=== PATIENT | female | born 1940 | race Caucasian/White ===

== ENCOUNTER 2018-02-25 12:34 | Emergency (ER) | payer MEDICARE, OTHER ==
[~2018-02-25] VITALS: Ht 165.1 cm; Wt 102.1 kg
[2018-02-25 12:51] VITALS: BP 137/96
[2018-02-25] MEDS ORDERED: KETOROLAC TROMETH 60MG/2ML VIAL IM ONE (15:15)
== END 2018-02-25 15:12 | disposition home or self-care (01) ==
LOC: ER 12:37
DX: S56.116A Strain of flexor muscle, fascia and tendon of left ring finger at forearm level, initial encounter (principal); S20.212A Contusion of left front wall of thorax, initial encounter; I10 Essential (primary) hypertension; E78.5 Hyperlipidemia, unspecified; Z87.891 Personal history of nicotine dependence; Z91.81 History of falling; Z88.6 Allergy status to analgesic agent; Z88.8 Allergy status to other drugs, medicaments and biological substances; W01.0XXA Fall on same level from slipping, tripping and stumbling without subsequent striking against object, initial encounter; Y93.89 Activity, other specified; Y92.89 Other specified places as the place of occurrence of the external cause; Y99.8 Other external cause status
CPT/HCPCS: 29130; 71045; 73130; 93005

== ENCOUNTER 2019-07-25 15:48 | Emergency (ER) | payer MEDICARE, OTHER ==
[~2019-07-25] VITALS: Ht 162.6 cm; Wt 93.4 kg
[2019-07-25 17:09] VITALS: BP 139/91
[2019-07-25] MEDS ORDERED: ACETAMINOPHEN 325 MG TAB PO ONE (17:15)
== END 2019-07-25 17:29 | disposition home or self-care (01) ==
LOC: ER 15:53
DX: S83.91XA Sprain of unspecified site of right knee, initial encounter (principal); I10 Essential (primary) hypertension; E78.5 Hyperlipidemia, unspecified; Z88.5 Allergy status to narcotic agent; Z88.8 Allergy status to other drugs, medicaments and biological substances; X58.XXXA Exposure to other specified factors, initial encounter; Y93.89 Activity, other specified; Y92.89 Other specified places as the place of occurrence of the external cause; Y99.8 Other external cause status
CPT/HCPCS: 73562

== ENCOUNTER 2021-04-09 19:38 | Emergency (ER) | payer MEDICARE, OTHER ==
[~2021-04-09] VITALS: Ht 167.6 cm; Wt 99.8 kg
[2021-04-09] MEDS ORDERED: SODIUM CHLORIDE 0.9% 1,000 ML IV ONE (20:45)
[2021-04-09] MEDS ORDERED: PIPERACILLIN-TAZO 4.5GM 100 ML IV ONE (20:45)
[2021-04-09] MEDS ORDERED: VANCOMYCIN 1GM/250ML 250 ML IV ONE (20:45)
[2021-04-09 21:24] LABS: Hematocrit 29.9 % (36.0-46.0); Mean Corpuscular Volume 95.5 fL (80.0-100.0)
[2021-04-09 21:27] LABS: Hemoglobin 9.9 g/dL (12.2-16.2); Mean Corpuscular Hemoglobin 31.7 pg (28.0-32.0); Mean Corpuscular Hgb Conc. 33.2 g/dL (32.0-36.0); Red Blood Cells 3.13 10^6/uL (4.0-5.20); Red Cell Distribution Width 13.8 % (11.8-14.3)
[2021-04-09 21:43] LABS: Albumin 2.9 g/dL (3.4-5.0); Calcium 8.8 mg/dL (8.5-10.1); Potassium 3.6 mmol/L (3.5-5.1)
[2021-04-09 21:44] LABS: White Blood Cell 31.4 10^3/uL (4.4-10.8)
[2021-04-09 21:46] LABS: Basophils % (manual) 0 (0.0-2.0); Blast Cells 0; Eosinophils % (manual) 0 (0-7); Metamyelocytes % 0; Myelocytes % 0; Promyelocytes % 0; Reactive Lymphocytes 0
[2021-04-09 21:50] LABS: BUN/Creatinine Ratio 9.4; Bilirubin, Total 0.3 mg/dL (0.2-1.0); Total Protein 6.2 g/dL (6.4-8.2)
[2021-04-09] MEDS ORDERED: ONDANSETRON HCL 4 MG/2 ML VIAL IV ONE (22:00)
[2021-04-09] MEDS ORDERED: MORPHINE SULFATE 4 MG/ML SYR/VIAL IV ONE (22:00)
[2021-04-09] MEDS ORDERED: SODIUM CHLORIDE 0.9% 3,000 ML IV ONE (22:15)
[2021-04-09 22:37] LABS: Lactic Acid w/Reflex 9.3 mmol/L (0.4-2.0)
[2021-04-09] MEDS ORDERED: fentaNYL CITRATE 100 MCG/2 ML VL ONE (22:48)
[2021-04-09 22:59] LABS: Band Neutrophils % (manual) 10; Lymphocytes % (manual) 8 (10.0-50.0); Monocytes % (manual) 5 (0-12)
[2021-04-09] MEDS ORDERED: fentaNYL CITRATE 100 MCG/2 ML VL IV ONE (23:00)
[2021-04-09 23:01] LABS: Hematocrit 27.3 % (36.0-46.0)
[2021-04-10 00:13] LABS: INR 1.19 (0.9-1.15); Partial Thromboplastin Time 23.9 sec (23.6-33.0)
[2021-04-10] MEDS ORDERED: ONDANSETRON HCL 4 MG/2 ML VIAL ONE (01:16)
[2021-04-10 01:29] VITALS: BP 93/42
[2021-04-10] MEDS ORDERED: fentaNYL CITRATE 100 MCG/2 ML VL IV ONE (01:30)
[2021-04-10] MEDS ORDERED: ONDANSETRON HCL 4 MG/2 ML VIAL IV ONE (01:30)
== END 2021-04-10 02:11 | disposition short-term general hospital (02) ==
LOC: EDBD 19:38 → ER 19:44
DX: I72.9 Aneurysm of unspecified site (principal); R10.32 Left lower quadrant pain; Z90.49 Acquired absence of other specified parts of digestive tract; Z20.822 Contact with and (suspected) exposure to COVID-19
CPT/HCPCS: 36415; 36430; 71045; 74176; 80053; 83605; 83690; 84484; 85007; 85014; 85018; 85027; 85610; 85730; 86850; 86900; 86901; 86920; 87040; 87426; 93005; 96365; 96366; 96367; 96375; 96376; 99285; J2270; J2405; J2543; J3010; J3370; J7030; J7040; P9016

== ENCOUNTER 2022-09-18 14:38 | Emergency (ER) | payer MEDICARE, OTHER ==
[~2022-09-18] VITALS: Ht 165.1 cm; Wt 88.4 kg
[2022-09-18 19:35] VITALS: BP 202/124
== END 2022-09-18 19:31 | disposition home or self-care (01) ==
LOC: ER 14:38
DX: M13.811 Other specified arthritis, right shoulder (principal); R07.89 Other chest pain; E78.5 Hyperlipidemia, unspecified; I10 Essential (primary) hypertension; Z87.891 Personal history of nicotine dependence; Z88.6 Allergy status to analgesic agent
CPT/HCPCS: 71046; 72040; 73030

== ENCOUNTER 2024-01-15 18:04 | Inpatient (IN) | payer MEDICARE, OTHER ==
[~2024-01-15] VITALS: Ht 170.2 cm; Wt 91.1 kg
[2024-01-15 19:19] LABS: Basophils # (auto) 0.1 10 ^3/uL (0-0.2); Basophils % (auto) 1.3 % (0.0-2.0); Eosinophils # (auto) 0.5 10 ^3/uL (0-0.8); Hemoglobin 11.6 g/dL (12.2-16.2); Lymphocytes # (auto) 2.6 10 ^3/uL (0.4-5.4); Lymphocytes % (auto) 35.2 % (10.0-50.0); Mean Corpuscular Hemoglobin 31.5 pg (28.0-32.0); Mean Corpuscular Hgb Conc. 32.3 g/dL (32.0-36.0); Mean Corpuscular Volume 97.4 fL (80.0-100.0); Monocytes % (auto) 13.3 % (0.0-12.0); Neutrophils # (auto) 3.2 10 ^3/uL (1.6-8.6); Neutrophils % (auto) 43.2 % (37.0-80.0); Nucleated Red Blood Cells % 0.1 %; Red Blood Cells 3.69 10^6/uL (4.0-5.20); White Blood Cell 7.3 10^3/uL (4.4-10.8)
[2024-01-15 19:34] LABS: Alanine Aminotransferase 12 U/L (7-40); Albumin 3.9 g/dL (3.2-4.8); Alkaline Phosphatase 62 U/L (46-116); Anion Gap 6 (5-15); Aspartate Aminotransferase 14 U/L (13-40); BUN/Creatinine Ratio 11.6 (10.0-20.0); Bilirubin, Total 0.2 mg/dL (0.2-1.0); Blood Urea Nitrogen 13 mg/dL (9-23); Calcium 8.8 mg/dL (8.7-10.4); Carbon Dioxide 24 mmol/L (20-30); Chloride 111 mmol/L (98-107); Glucose 104 mg/dL (74-106); Potassium 4.4 mmol/L (3.5-5.1); Sodium 141 mmol/L (136-145); Total Protein 6.5 g/dL (5.7-8.2)
[2024-01-15 19:38] LABS: INR 1.03 (0.9-1.15); Partial Thromboplastin Time 26.5 SEC (24.5-34.5); Prothrombin Time 10.9 sec (9.3-11.8)
[2024-01-15] MEDS ORDERED: LOSA-534 PO (23:24)
[2024-01-15] MEDS ORDERED: AMLO1TAB21 PO (23:24)
[2024-01-15] MEDS ORDERED: CHOL4POW33 PO (23:24)
[2024-01-15] MEDS ORDERED: MET25T PO (23:24)
[2024-01-15] MEDS ORDERED: CITA-77 PO (23:24)
[2024-01-15] MEDS ORDERED: DOCUSATE SOD 100 MG CAP PO PRN (23:30)
[2024-01-15] MEDS ORDERED: ONDANSETRON HCL 4 MG/2 ML VIAL IV PRN (23:30)
[2024-01-15] MEDS ORDERED: MORPHINE SULFATE INJ 2 MG/ml SYRG IV PRN ×2 (23:30)
[2024-01-15] MEDS ORDERED: ACETAMINOPHEN 325 MG TAB PO PRN (23:30)
[2024-01-15] MEDS ORDERED: NITROGLYCERIN 0.4 MG SL TAB SL PRN (23:30)
[2024-01-16] VITALS (8 sets, daily range): BP systolic 132–181; BP diastolic 65–91; PULSE 61–98; RESP 14–20; TEMP 97.7–97.9; O2SAT 95–96
[2024-01-16] MEDS: ASPirin-EC 325mg tab PO ONE (00:38)
[2024-01-16] MEDS: PANTOPRAZOLE 40 MG/10 ML VIAL INJ IV ONE (01:51)
[2024-01-16] MEDS: FUROSEMIDE 40 MG/4 ML VIAL IV ONE (01:52)
[2024-01-16] MEDS: hydrALAZINE HCL 20 MG/ML VL IV PRN (02:03)
[2024-01-16 03:34] LABS: Urine Bacteria None Seen /hpf (None Seen); Urine WBC None Seen /hpf (0 - 5)
[2024-01-16 04:08] LABS: Urine Blood Negative /uL (Negative); Urine Clarity Clear (Clear); Urine Color Colorless (Yellow); Urine Protein, UAD Negative (Negative); Urine Specific Gravity 1.005 (1.001-1.035); Urine Urobilinogen Normal (Negative); Urine pH 5.5 (5.0-9.0)
[2024-01-16 05:03] LABS: COVID19 ANTIGEN SOFIA FIA NEGATIVE (NEGATIVE); Rapid Influenza A Negative (Negative); Rapid Influenza B Negative (Negative)
[2024-01-16 05:37] LABS: Basophils # (auto) 0.1 10 ^3/uL (0-0.2); Basophils % (auto) 0.9 % (0.0-2.0); Eosinophils # (auto) 0.6 10 ^3/uL (0-0.8); Eosinophils % (auto) 7.7 % (0.0-7.0); Hematocrit 36.2 % (36.0-46.0); Lymphocytes # (auto) 2.3 10 ^3/uL (0.4-5.4); Lymphocytes % (auto) 31.3 % (10.0-50.0); Mean Corpuscular Hemoglobin 32.1 pg (28.0-32.0); Mean Corpuscular Hgb Conc. 33.2 g/dL (32.0-36.0); Mean Corpuscular Volume 96.5 fL (80.0-100.0); Monocytes # (auto) 0.8 10 ^3/uL (0-1.3); Monocytes % (auto) 11.3 % (0.0-12.0); Neutrophils # (auto) 3.6 10 ^3/uL (1.6-8.6); Neutrophils % (auto) 48.8 % (37.0-80.0); Red Blood Cells 3.75 10^6/uL (4.0-5.20); Red Cell Distribution Width 13.7 % (11.8-14.3); White Blood Cell 7.4 10^3/uL (4.4-10.8)
[2024-01-16 05:55] LABS: Alanine Aminotransferase 10 U/L (7-40); Albumin 3.9 g/dL (3.2-4.8); Alkaline Phosphatase 61 U/L (46-116); Anion Gap 8 (5-15); Aspartate Aminotransferase 16 U/L (13-40); BUN/Creatinine Ratio 10.2 (10.0-20.0); Blood Urea Nitrogen 12 mg/dL (9-23); Calcium 8.9 mg/dL (8.7-10.4); Carbon Dioxide 23 mmol/L (20-30); Chloride 110 mmol/L (98-107); Glucose 106 mg/dL (74-106); Potassium 3.4 mmol/L (3.5-5.1); Sodium 141 mmol/L (136-145)
[2024-01-16 05:56] LABS: Bilirubin, Total 0.2 mg/dL (0.2-1.0); Total Protein 6.7 g/dL (5.7-8.2)
[2024-01-16] MEDS: FUROSEMIDE 20 MG/2 ML VIAL IV SCH (06:09)
[2024-01-16] MEDS: HYDROcodone-ACET 5/325MG TAB PO PRN (08:10)
[2024-01-16] MEDS ORDERED: PATIENTS OWN MEDICATION (Amlodipine Besylate 1 TAB) PO SCH (10:00)
[2024-01-16] MEDS: amLODIPine BESYLATE 5 MG TAB PO SCH (10:45)
[2024-01-16] MEDS: CITALOPRAM HYDROBR 20 MG TAB PO SCH (10:45)
[2024-01-16] MEDS: ASPirin-EC 81 mg tab PO SCH (10:45)
[2024-01-16] MEDS: ENOXAPARIN SOD 40 MG/0.4 ML SYRINGE SC SCH (10:46)
[2024-01-16] MEDS: POTASSIUM EFFERVESENT TAB 25 MEQ PO ONE (10:48)
[2024-01-16] MEDS: PANTOPRAZOLE 40 MG/10 ML VIAL INJ IV SCH (12:04)
[2024-01-16] MEDS: METOPROLOL TARTRATE 25 MG TAB PO SCH (12:05)
[2024-01-16] MEDS: LOSARTAN POTASSIUM 50 MG TAB PO SCH (12:05)
[2024-01-16] MEDS: CHOLESTYRAMINE 4 GM POWDER PO SCH (12:06)
[2024-01-16] MEDS ORDERED: HYDR-4902 PO (14:47)
[2024-01-16] MEDS ORDERED: IBUP-1453 PO (14:47)
[2024-01-16] MEDS ORDERED: ALEN70TA74 PO (14:47)
[2024-01-16] MEDS ORDERED: MORPHINE SULFATE 4 MG/ML SYR/VIAL IV PRN ×2 (21:30)
[2024-01-16] MEDS: CARVEDILOL 12.5 MG TAB PO SCH (21:32)
[2024-01-16] MEDS: ATORVASTATIN 20 MG TAB PO SCH (21:33)
[2024-01-16] MEDS: MELATONIN 5 MG TAB PO ONE (22:46)
[2024-01-16] MEDS: guaiFENesin-DM 100/10mg/5ml SYR PO PRN (22:46)
[2024-01-17 01:00] VITALS: BP 119/53; PULSE 86; RESP 16; TEMP 97.9; O2SAT 94
[2024-01-17 05:00] VITALS: BP 110/44; PULSE 60; RESP 14; TEMP 97.5; O2SAT 94
[2024-01-17 07:16] LABS: Basophils # (auto) 0 10 ^3/uL (0-0.2); Basophils % (auto) 0.7 % (0.0-2.0); Eosinophils # (auto) 0.5 10 ^3/uL (0-0.8); Eosinophils % (auto) 8.9 % (0.0-7.0); Hemoglobin 10.8 g/dL (12.2-16.2); Lymphocytes # (auto) 2.4 10 ^3/uL (0.4-5.4); Lymphocytes % (auto) 39.5 % (10.0-50.0); Mean Corpuscular Hemoglobin 31.6 pg (28.0-32.0); Mean Corpuscular Hgb Conc. 32.7 g/dL (32.0-36.0); Mean Corpuscular Volume 96.8 fL (80.0-100.0); Monocytes % (auto) 16.6 % (0.0-12.0); Neutrophils # (auto) 2.1 10 ^3/uL (1.6-8.6); Neutrophils % (auto) 34.3 % (37.0-80.0); Nucleated Red Blood Cells % 0.1 %; Red Blood Cells 3.41 10^6/uL (4.0-5.20); Red Cell Distribution Width 13.5 % (11.8-14.3); White Blood Cell 6.2 10^3/uL (4.4-10.8)
[2024-01-17 07:25] LABS: Albumin 3.6 g/dL (3.2-4.8); Alkaline Phosphatase 54 U/L (46-116); Anion Gap 6 (5-15); Aspartate Aminotransferase 15 U/L (13-40); BUN/Creatinine Ratio 12.2 (10.0-20.0); Blood Urea Nitrogen 21 mg/dL (9-23); Carbon Dioxide 27 mmol/L (20-30); Chloride 106 mmol/L (98-107); Glucose 98 mg/dL (74-106); Potassium 4.3 mmol/L (3.5-5.1); Sodium 139 mmol/L (136-145)
[2024-01-17 07:26] LABS: Bilirubin, Total 0.6 mg/dL (0.2-1.0); Total Protein 5.9 g/dL (5.7-8.2)
[2024-01-17 07:29] LABS: Alanine Aminotransferase < 9 U/L (7-40)
[2024-01-17 08:00] VITALS: PULSE 103
[2024-01-17] MEDS ORDERED: ASPI1TAB19 PO (08:59)
[2024-01-17] MEDS ORDERED: CARV12.544 PO (08:59)
[2024-01-17] MEDS ORDERED: NIFE1TAB30 PO (08:59)
[2024-01-17 09:00] VITALS: BP 132/59; PULSE 58; RESP 16; TEMP 97.6; O2SAT 94
[2024-01-17] MEDS: NIFEdipine ER 30 MG TAB PO SCH (10:17)
[2024-01-17 13:00] VITALS: BP 112/50; PULSE 62; RESP 16; TEMP 97.6; O2SAT 94
== END 2024-01-17 14:50 | disposition home or self-care (01) | DRG 305 ==
LOC: ER 18:04 → TELE 23:19 → TELE-CENTR 01-16 10:04
PROVIDERS: ADMIT Internal Medicine Geriatric Medicine; ATTEND Emergency Medicine
DX: I16.0 Hypertensive urgency (principal); I50.9 Heart failure, unspecified; E78.5 Hyperlipidemia, unspecified; I11.0 Hypertensive heart disease with heart failure; Z20.822 Contact with and (suspected) exposure to COVID-19; Z96.653 Presence of artificial knee joint, bilateral; Z85.048 Personal history of other malignant neoplasm of rectum, rectosigmoid junction, and anus; Z86.79 Personal history of other diseases of the circulatory system; Z88.5 Allergy status to narcotic agent; Z88.8 Allergy status to other drugs, medicaments and biological substances; Z88.6 Allergy status to analgesic agent; Z91.041 Radiographic dye allergy status; Z90.49 Acquired absence of other specified parts of digestive tract
CPT/HCPCS: 36415; 71045; 71250; 80053; 81001; 83605; 83735; 83880; 84484; 85025; 85379; 85610; 85730; 87040; 87426; 87804; 93005; 93306; C9113; G0378

== ENCOUNTER → 2024-04-01 | Outpatient (CLI) | payer MEDICARE, OTHER ==
[~2024-04-01] MED LIST: ALEN70TA74 PO; ASPI1TAB19 PO; CARV12.544 PO; CHOL4POW33 PO; CITA-77 PO; HYDR-4902 PO; IBUP-1453 PO; LOSA-534 PO; NIFE1TAB30 PO
[2024-04-01 08:55] LABS: Urine Bacteria None Seen /hpf (None Seen)
[2024-04-01 09:03] LABS: Basophils # (auto) 0.1 10 ^3/uL (0-0.2); Basophils % (auto) 0.8 % (0.0-2.0); Eosinophils # (auto) 0.3 10 ^3/uL (0-0.8); Eosinophils % (auto) 4.4 % (0.0-7.0); Hematocrit 35.4 % (36.0-46.0); Hemoglobin 11.7 g/dL (12.2-16.2); Lymphocytes # (auto) 2.4 10 ^3/uL (0.4-5.4); Lymphocytes % (auto) 35.9 % (10.0-50.0); Mean Corpuscular Hemoglobin 31.9 pg (28.0-32.0); Mean Corpuscular Hgb Conc. 33.1 g/dL (32.0-36.0); Mean Corpuscular Volume 96.3 fL (80.0-100.0); Monocytes # (auto) 0.6 10 ^3/uL (0-1.3); Monocytes % (auto) 8.7 % (0.0-12.0); Neutrophils # (auto) 3.4 10 ^3/uL (1.6-8.6); Neutrophils % (auto) 50.2 % (37.0-80.0); Red Blood Cells 3.68 10^6/uL (4.0-5.20); White Blood Cell 6.8 10^3/uL (4.4-10.8)
[2024-04-01 09:16] LABS: Urine Blood Negative /uL (Negative); Urine Clarity Clear (Clear); Urine Color Light-Yellow (Yellow); Urine Protein, UAD Negative (Negative); Urine Specific Gravity 1.017 (1.001-1.035); Urine Urobilinogen Normal (Negative); Urine WBC 1 /hpf (0 - 5); Urine pH 5.5 (5.0-9.0)
[2024-04-01 09:35] LABS: Creatinine, Urine 87.06 mg/dL (30.0-125.0)
[2024-04-01 09:45] LABS: Alkaline Phosphatase 58 U/L (46-116); Anion Gap 7 (5-15); BUN/Creatinine Ratio 16.9 (10.0-20.0); Blood Urea Nitrogen 20 mg/dL (9-23); Calcium 9.5 mg/dL (8.7-10.4); Carbon Dioxide 26 mmol/L (20-30); Chloride 109 mmol/L (98-107); LDL Cholesterol 106 mg/dL (< 100); Magnesium 1.8 mg/dL (1.6-2.6); Potassium 4.4 mmol/L (3.5-5.1); Sodium 142 mmol/L (136-145); Triglycerides 181 mg/dL (< 150)
[2024-04-01 09:46] LABS: Aspartate Aminotransferase 9 U/L (13-40); Cholesterol 180 mg/dL (< 200); HDL Cholesterol 45 mg/dL (40-59)
[2024-04-01 09:47] LABS: Bilirubin, Total 0.4 mg/dL (0.2-1.0); Total Protein 6.4 g/dL (5.7-8.2)
[2024-04-01 09:54] LABS: Glucose 99 mg/dL (74-106)
[2024-04-01 10:04] LABS: Alanine Aminotransferase < 9 U/L (7-40)
== END | disposition home or self-care (01) ==
LOC: LAB 08:43
PROVIDERS: ATTEND Internal Medicine
DX: Z00.01 Encounter for general adult medical examination with abnormal findings (principal); Z13.1 Encounter for screening for diabetes mellitus; I12.9 Hypertensive chronic kidney disease with stage 1 through stage 4 chronic kidney disease, or unspecified chronic kidney disease; E87.6 Hypokalemia; D64.9 Anemia, unspecified; M81.0 Age-related osteoporosis without current pathological fracture; E03.9 Hypothyroidism, unspecified; E78.5 Hyperlipidemia, unspecified
CPT/HCPCS: 36415; 80053; 80061; 81001; 82043; 82306; 82570; 83036; 83735; 84439; 84443; 85025

== ENCOUNTER → 2024-04-14 | Outpatient (CLI) | payer MEDICARE, OTHER ==
[2024-04-14 14:59] LABS: Calcium 9.5 mg/dL (8.7-10.4); Chloride 105 mmol/L (98-107); Potassium 4.6 mmol/L (3.5-5.1); Sodium 138 mmol/L (136-145)
[2024-04-14 15:00] LABS: Anion Gap 9 (5-15); Carbon Dioxide 24 mmol/L (20-30)
[2024-04-14 15:05] LABS: BUN/Creatinine Ratio 11.6 (10.0-20.0); Blood Urea Nitrogen 17 mg/dL (9-23); Glucose 120 mg/dL (74-106)
== END | disposition home or self-care (01) ==
LOC: LAB 14:11
PROVIDERS: ATTEND Internal Medicine
DX: I12.9 Hypertensive chronic kidney disease with stage 1 through stage 4 chronic kidney disease, or unspecified chronic kidney disease (principal); N18.31 Chronic kidney disease, stage 3a; E78.5 Hyperlipidemia, unspecified; E55.9 Vitamin D deficiency, unspecified
CPT/HCPCS: 36415; 80048

== ENCOUNTER → 2024-04-22 | Outpatient (CLI) | payer MEDICARE, OTHER ==
[~2024-04-22] VITALS: Ht 167.6 cm; Wt 90.7 kg
[~2024-04-22] MED LIST changes: +ADENOSINE IV ONE; +GIVE UN DILUTED IV ONE
[2024-04-22] MEDS: ADENOSINE 76 MG in GIVE UN-DILUTED 0 ML IV ONE (09:59)
== END | disposition home or self-care (01) ==
LOC: XYW 08:05
PROVIDERS: ATTEND Student in an Organized Health Care Education/Training Program
DX: R00.1 Bradycardia, unspecified (principal); R07.9 Chest pain, unspecified; I10 Essential (primary) hypertension; E78.5 Hyperlipidemia, unspecified; Z87.891 Personal history of nicotine dependence; I71.40 Abdominal aortic aneurysm, without rupture, unspecified; C18.9 Malignant neoplasm of colon, unspecified
CPT/HCPCS: 78452; 93017; A9500; J0153

== ENCOUNTER 2024-05-27 13:49 | Inpatient (IN) | payer MEDICARE, OTHER ==
[~2024-05-27] VITALS: Ht 167.6 cm; Wt 97.0 kg
[~2024-05-27 13:49] MED LIST changes: -ADENOSINE IV ONE; -GIVE UN DILUTED IV ONE
[2024-05-27 15:28] LABS: Basophils # (auto) 0.1 10 ^3/uL (0-0.2); Basophils % (auto) 0.8 % (0.0-2.0); Eosinophils # (auto) 0.8 10 ^3/uL (0-0.8); Eosinophils % (auto) 7.9 % (0.0-7.0); Hematocrit 36.6 % (36.0-46.0); Hemoglobin 12.4 g/dL (12.2-16.2); Lymphocytes # (auto) 3.3 10 ^3/uL (0.4-5.4); Lymphocytes % (auto) 34.1 % (10.0-50.0); Mean Corpuscular Hgb Conc. 33.8 g/dL (32.0-36.0); Mean Corpuscular Volume 97.6 fL (80.0-100.0); Monocytes # (auto) 0.8 10 ^3/uL (0-1.3); Monocytes % (auto) 8.2 % (0.0-12.0); Neutrophils # (auto) 4.7 10 ^3/uL (1.6-8.6); Nucleated Red Blood Cells % 0.3 %; Platelet Count (auto) 229 10^3/uL (140-450); Red Blood Cells 3.75 10^6/uL (4.0-5.20); Red Cell Distribution Width 13.8 % (11.8-14.3); White Blood Cell 9.7 10^3/uL (4.4-10.8)
[2024-05-27 15:48] LABS: Alanine Aminotransferase 10 U/L (7-40); Albumin 4.5 g/dL (3.2-4.8); Alkaline Phosphatase 60 U/L (46-116); Anion Gap 8 (5-15); Aspartate Aminotransferase 11 U/L (13-40); BUN/Creatinine Ratio 10.6 (10.0-20.0); Blood Urea Nitrogen 15 mg/dL (9-23); Calcium 9.7 mg/dL (8.7-10.4); Carbon Dioxide 26 mmol/L (20-30); Chloride 107 mmol/L (98-107); Glucose 118 mg/dL (74-106); INR 1.1 (0.9-1.15); Potassium 3.9 mmol/L (3.5-5.1); Prothrombin Time 11.6 sec (9.3-11.8); Sodium 141 mmol/L (136-145)
[2024-05-27 15:49] LABS: Bilirubin, Total 0.5 mg/dL (0.2-1.0); Total Protein 7.1 g/dL (5.7-8.2)
[2024-05-27] MEDS ORDERED: ONDANSETRON HCL 4 MG/2 ML VIAL IV PRN (18:45)
[2024-05-27] MEDS ORDERED: MORPHINE SULFATE INJ 2 MG/ml SYRG IV PRN (18:45)
[2024-05-27] MEDS ORDERED: NITROGLYCERIN 0.4 MG SL TAB SL PRN (18:45)
[2024-05-27] MEDS ORDERED: DOCUSATE SOD 100 MG CAP PO PRN (18:45)
[2024-05-27] MEDS ORDERED: PRAV20TA3 PO (18:56)
[2024-05-27 20:07] VITALS: BP 113/56; PULSE 91; RESP 18; TEMP 98.2; O2SAT 95
[2024-05-27 21:44] VITALS: PULSE 118; RESP 16; O2SAT 97
[2024-05-27] MEDS: ALBUTEROL SULF 2.5 MG/0.5ML(0.5%) NEB SOLN NEB SCH (21:44)
[2024-05-27] MEDS: IPRATROPIUM BROM 0.5 MG/2.5ML INH SOL NEB SCH (21:44)
[2024-05-27 21:50] VITALS: PULSE 111; RESP 18; O2SAT 98
[2024-05-27] MEDS: methylPREDNISolone SOD SUCC 40 MG/ML VL IV SCH (22:34)
[2024-05-27] MEDS: ENOXAPARIN SOD 40 MG/0.4 ML SYRINGE SC SCH (22:36)
[2024-05-27] MEDS: PRAVASTATIN SODIUM 20 MG TAB PO SCH (22:37)
[2024-05-27] MEDS: LOSARTAN POTASSIUM 50 MG TAB PO SCH (22:41)
[2024-05-27] MEDS: CARVEDILOL 12.5 MG TAB PO SCH (22:47)
[2024-05-28] VITALS (19 sets, daily range): BP systolic 128–175; BP diastolic 58–91; PULSE 73–106; RESP 16–20; TEMP 97.4–98.3; O2SAT 92–99
[2024-05-28] MEDS: SODIUM CHLORIDE 0.9% 1,000 ML IV ONE (00:24)
[2024-05-28] MEDS: SODIUM CHLORIDE 0.9% 500 ML IV ONE (00:25)
[2024-05-28] MEDS ORDERED: OMEP20TA PO (04:36)
[2024-05-28] MEDS ORDERED: METH-1181 PO (04:41)
[2024-05-28] MEDS ORDERED: FURO20TA3 PO (04:41)
[2024-05-28 04:42] LABS: COVID19 ANTIGEN SOFIA FIA NEGATIVE (NEGATIVE)
[2024-05-28] MEDS ORDERED: GABA250S7 PO (04:43)
[2024-05-28] MEDS ORDERED: HYDR25TA88 PO (04:43)
[2024-05-28] MEDS ORDERED: HYDR-4902 PO (04:44)
[2024-05-28] MEDS ORDERED: ASCO500T11 GT (05:15)
[2024-05-28 08:27] LABS: Basophils # (auto) 0 10 ^3/uL (0-0.2); Basophils % (auto) 0.2 % (0.0-2.0); Eosinophils # (auto) 0 10 ^3/uL (0-0.8); Eosinophils % (auto) 0.4 % (0.0-7.0); Hematocrit 33.9 % (36.0-46.0); Hemoglobin 11.5 g/dL (12.2-16.2); Lymphocytes # (auto) 1.6 10 ^3/uL (0.4-5.4); Lymphocytes % (auto) 23.6 % (10.0-50.0); Mean Corpuscular Hemoglobin 33.4 pg (28.0-32.0); Mean Corpuscular Hgb Conc. 34.1 g/dL (32.0-36.0); Monocytes # (auto) 0.1 10 ^3/uL (0-1.3); Monocytes % (auto) 1.5 % (0.0-12.0); Neutrophils # (auto) 5.1 10 ^3/uL (1.6-8.6); Neutrophils % (auto) 74.3 % (37.0-80.0); Platelet Count (auto) 187 10^3/uL (140-450); Red Blood Cells 3.45 10^6/uL (4.0-5.20); Red Cell Distribution Width 13.7 % (11.8-14.3); White Blood Cell 6.9 10^3/uL (4.4-10.8)
[2024-05-28 08:30] LABS: Chloride 109 mmol/L (98-107); Potassium 4.5 mmol/L (3.5-5.1); Sodium 141 mmol/L (136-145)
[2024-05-28 08:31] LABS: Anion Gap 9 (5-15); Carbon Dioxide 23 mmol/L (20-30)
[2024-05-28 08:32] LABS: Calcium 9.4 mg/dL (8.7-10.4)
[2024-05-28 08:37] LABS: Blood Urea Nitrogen 18 mg/dL (9-23); Glucose 141 mg/dL (74-106)
[2024-05-28] MEDS: CHOLESTYRAMINE 4 GM POWDER PO SCH (08:52)
[2024-05-28] MEDS: ASPirin-EC 81 mg tab PO SCH (08:53)
[2024-05-28] MEDS: NIFEdipine ER 30 MG TAB PO SCH (08:54)
[2024-05-28] MEDS: CITALOPRAM HYDROBR 20 MG TAB PO SCH (08:55)
[2024-05-28] MEDS: FUROSEMIDE 40 MG/4 ML VIAL IV ONE (15:12)
[2024-05-28 19:18] LABS: Urine Bacteria FEW /hpf (None Seen); Urine Blood Negative /uL (Negative); Urine Clarity Clear (Clear); Urine Color Colorless (Yellow); Urine Protein, UAD Negative (Negative); Urine Urobilinogen Normal (Negative); Urine WBC 1 /hpf (0 - 5); Urine pH 6.5 (5.0-9.0)
[2024-05-28 20:57] LABS: Urine Bacteria None Seen /hpf (None Seen)
[2024-05-28 21:02] LABS: Urine Blood Negative /uL (Negative); Urine Clarity Clear (Clear); Urine Color Yellow (Yellow); Urine Mucus FEW (None Seen); Urine Protein, UAD 1+ (Negative); Urine Specific Gravity 1.023 (1.001-1.035); Urine Urobilinogen Normal (Negative); Urine WBC 6 /hpf (0 - 5); Urine pH 5.5 (5.0-9.0)
[2024-05-28] MEDS: HYDROcodone-ACET 5/325MG TAB PO PRN (22:23)
[2024-05-29] VITALS (18 sets, daily range): BP systolic 114–144; BP diastolic 30–69; PULSE 45–91; RESP 14–20; TEMP 98–98.7; O2SAT 91–100
[2024-05-29 07:27] LABS: Anion Gap 9 (5-15); Carbon Dioxide 25 mmol/L (20-30); Chloride 106 mmol/L (98-107); Potassium 3.9 mmol/L (3.5-5.1); Sodium 140 mmol/L (136-145)
[2024-05-29 07:28] LABS: Calcium 9.9 mg/dL (8.7-10.4)
[2024-05-29 07:32] LABS: Glucose 98 mg/dL (74-106)
[2024-05-29 07:33] LABS: BUN/Creatinine Ratio 15.4 (10.0-20.0); Blood Urea Nitrogen 19 mg/dL (9-23)
[2024-05-29] MEDS: FUROSEMIDE 40 MG/4 ML VIAL IV SCH (10:40)
[2024-05-29] MEDS: ACETAMINOPHEN 325 MG TAB PO PRN (22:12)
[2024-05-30] VITALS (13 sets, daily range): BP systolic 123–158; BP diastolic 63–82; PULSE 55–87; RESP 16–18; TEMP 36.7; O2SAT 93–100
== END 2024-05-30 16:59 | disposition home or self-care (01) | DRG 291 ==
LOC: ER 13:49 → TELE 18:49 → TELE-EAST 23:40
PROVIDERS: ADMIT Registered Nurse General Practice; ATTEND Internal Medicine
DX: I11.0 Hypertensive heart disease with heart failure (principal); I50.33 Acute on chronic diastolic (congestive) heart failure; N17.0 Acute kidney failure with tubular necrosis; E66.9 Obesity, unspecified; Z20.822 Contact with and (suspected) exposure to COVID-19; E78.5 Hyperlipidemia, unspecified; Z90.49 Acquired absence of other specified parts of digestive tract; Z85.048 Personal history of other malignant neoplasm of rectum, rectosigmoid junction, and anus; Z68.34 Body mass index [BMI] 34.0-34.9, adult
CPT/HCPCS: 36415; 71046; 71250; 78582; 80048; 80053; 81001; 83880; 84484; 85025; 85379; 85610; 85730; 87426; 93970; 94640; 97110; 97116; 97163; 97530; G0378

== ENCOUNTER 2024-07-22 15:49 | Emergency (ER) | payer MEDICARE, OTHER ==
[~2024-07-22] VITALS: Ht 167.6 cm; Wt 92.9 kg
[~2024-07-22 15:49] MED LIST changes: +ASCO500T11 GT; +FURO20TA3 PO; +GABA250S7 PO; +HYDR25TA88 PO; +METH-1181 PO; +OMEP20TA PO; +PRAV20TA3 PO
--- NOTE | 2024-07-22 16:15 | ED.PDOC ---
SOB-HPI HPI Comments HPI: 84y F who presents to the ED for chief complaint of flu-like symptoms. Pt states she has been having rhinorrhea, cough, and yellow phlegm for the past 1 week. pt otherwise denies any recent sick contacts or any associated shortness of breath. pt otherwise denies any other symptoms at this time. Patient was sent here by her PCP to rule out pneumonia versus COVID versus influenza. Vitals: temp: 98.2 RR: 16 02 sat: 97% on RA heart rate: 74 BP: 142/66 PMH: cancer, AAA, htn, hld PSH: AAA surgery social history: denies tobacco use, denies ETOH use, denies drug use medications: unknown allergies: Dilaudid/iodine HPI: Poor Historian. Past Medcial History: Past Surgical History: REVIEW OF SYSTEMS: CONSTITUTIONAL: Denies acute: fever, diaphoresis, chills, generalized weakness. HEAD: Denies acute: headache, photophobia Eyes: Denies acute: Double vision, vision loss, eye pain, eye discharge. EARS: Denies acute: tinnitus, hearing loss, ear discharge, ear pain, THROAT: Denies acute: sore throat, swelling, difficulty swallowing , pain with swallowing, change in voice. NECK: Denies acute: neck pain, neck swelling, stiff neck. HEART: Denies acute : chest pain, palpitations, LUNGS: Denies acute: SOB, wheezing, hemoptysis ABDOMEN: Denies acute: abdominal pain, Nausea, Vomiting, diarrhea, melena , hematemesis, hematochezia SKIN: Denies acute: rash, redness, lesions, itchiness. EXTREMITIES: Denies acute: calf pain, numbness, tingling, weakness, denies pain in extremity. Denies acute: Low back pain. Neuro: Denies acute: focal neurological deficit, motor or sensory focal neurological deficit, tremors, seizure like activity, confusion, dizziness, change in mental status, loss of bowel or bladder function, cauda equina like symptoms. : Denies acute: dysuria, hematuria, flank pain, increase in urinary frequency. PSYCH: Denies acute: hallucination, suicidal ideation, homicidal ideation. FEMALE: Denies acute: abnormal vaginal bleeding, foul odor, unusual discharge. PHYSICAL EXAM: General: no acute distress, awake and alert. Head: normocephalic, atraumatic. Neck: supple, trachea is midline, no swelling. Throat: Normal phonation. Eyes:, no erythema, no purulent discharge, no proptosis, no icterus. Heart: regular rate, regular rhythm, no significant murmur appreciated. Lungs: no apparent respiratory distress, Able to speak in full sentences. No wheezing, no rhonchi, no crackles. No stridors Clear to auscultation bilaterally. Abdomen: non tender to palpation, non distended, soft, no guarding, no rebound, + bowel sounds. Neuro: Awake, Alert, oriented to name, self, situation, follows commands GCS=15. Speech is normal. Skin: no petechia, no purpura, no cyanosis, non-pale, not jaundice. Lower extremities: --1/4 bilateral - Pitting edema no deformity, no focal swelling, no calf TTP. Makes eye contact. moves all four extremities. Face: no apparent facial droop. Ambulating in the ED independently. No nuchal rigidity, Kernig's sign, Brudzinski's sign, no meningeal signs. 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 Was a procedure done?: No Differential Dx Differential Diagnosis: Anxiety, Asthma, Bronchitis, Cardiogenic Shock, CHF, COPD, Dysrhythmia, Hypertension, Sinusitis, Allergic Rhinitis, URI, Other (Insert URI) X-Ray, Labs, Meds, VS Vital Signs Date Time Temp Pulse Resp B/P (MAP) Pulse Ox O2 Delivery O2 Flow Rate FiO2 07/22/24 20:13 97.1 78 18 151/72 (98) 96 97.1 07/22/24 17:47 97.9 75 18 129/61 (83) 98 97.9 07/22/24 16:19 98.2 74 16 142/66 (91) 97 Lab Test 07/22/24 18:45 07/22/24 16:40 Range/Units Influenza Type A Antigen Negative Negative Influenza Type B Antigen Negative Negative SARS-CoV-2 Antigen (Rapid) Negative NEGATIVE White Blood Count 8.7 4.4-10.8 10^3/uL Red Blood Count 3.77 L 4.0-5.20 10^6/uL Hemoglobin 12.0 L 12.2-16.2 g/dL Hematocrit 36.5 36.0-46.0 % Mean Corpuscular Volume 96.9 80.0-100.0 fL Mean Corpuscular Hemoglobin 31.8 28.0-32.0 pg Mean Corpuscular Hemoglobin Concent 32.8 32.0-36.0 g/dL Red Cell Distribution Width 13.5 11.8-14.3 % Platelet Count 217 140-450 10^3/uL Mean Platelet Volume 7.3 6.9-10.8 fL Neutrophils (%) (Auto) 56.3 37.0-80.0 % Lymphocytes (%) (Auto) 31.0 10.0-50.0 % Monocytes (%) (Auto) 8.2 0.0-12.0 % Eosinophils (%) (Auto) 3.7 0.0-7.0 % Basophils (%) (Auto) 0.8 0.0-2.0 % Neutrophils # (Auto) 4.9 1.6-8.6 10 ^3/uL Lymphocytes # (Auto) 2.7 0.4-5.4 10 ^3/uL Monocytes # (Auto) 0.7 0-1.3 10 ^3/uL Eosinophils # (Auto) 0.3 0-0.8 10 ^3/uL Basophils # (Auto) 0.1 0-0.2 10 ^3/uL Nucleated Red Blood Cells 0.1 % Sodium Level 143 136-145 mmol/L Potassium Level 4.1 3.5-5.1 mmol/L Chloride Level 110 H 98-107 mmol/L Carbon Dioxide Level 24 20-31 mmol/L Anion Gap 9 5-15 Blood Urea Nitrogen 20 9-23 mg/dL Creatinine 1.45 #H 0.550-1.02 mg/dL Glomerular Filtration Rate Calc 36 >90 mL/min BUN/Creatinine Ratio 13.8 10.0-20.0 Serum Glucose 103 74-106 mg/dL Calcium Level 9.6 8.7-10.4 mg/dL Total Bilirubin 0.2 0.2-1.0 mg/dL Aspartate Amino Transferase (AST) 11 L 13-40 U/L Alanine Aminotransferase (ALT) 11 7-40 U/L Alkaline Phosphatase 53 46-116 U/L Troponin I High Sensitivity 9 </=34 ng/L Total Protein 6.5 5.7-8.2 g/dL Albumin 4.2 3.2-4.8 g/dL [place] [id number] Ph: [phone] DIAGNOSTIC IMAGING Diagnostic Imaging Report : [id number] Signed PATIENT: KRISTAL BURCH ACCT: [id number] UNIT: [id number] : 1940 LOC: ER ROOM / BED: / AGE / SEX: 84 / F ADM STATUS: REG ER SERVICE 13 ORDERING PHYSICIAN: FADI WONG DO PROCEDURE(s): CXRP - CHEST PORTABLE REASON: Respiratory symptoms ORDER NUMBER(s): [id number], ACCESSION NUMBER(s): [id number] CHEST RADIOGRAPH Indication: Respiratory symptoms Technique: Single frontal view of the chest was obtained Comparison: XY CHEST PORTABLE on DOS: 01/15/24, CHEST PORTABLE on DOS: 04/09/21 FINDINGS: Lines and Tubes: None Lungs: No focal consolidation. Bilateral lower lung zone linear densities. Pleura: No effusion. No pneumothorax. Cardiomediastinal contours: Unremarkable Bones: No acute osseous abnormality. IMPRESSION: Bilateral lower lung zone linear atelectasis. Otherwise, no evidence for acute cardiopulmonary disease. ATED BY: MIGUELINA RANKIN DO DICTATED DATE/TIME: 07/22/241648 SIGNED BY: MIGUELINA RANKIN DO SIGNED DATE/TIME: 07/22/241648 CC: Time of 1ST Reevaluation: 21:21 Reevaluation 1ST: Stable in no respiratory Patient Education/Counseling: Diagnosis, Treatment Family Education/Counseling: No Family Present Comments Patient presented with the above HPI.--URI----workup was initiated. patient was found with the above mentioned diagnosis. Patient was sent by her PCP to rule out pneumonia versus COVID or influenza. Patient ED course and VS have been stabilized. Patient has been reassessed in the ED and remained in a stable condition. Pertinent incidental findings were discussed with the patient and/or family. Patient/family voices understanding and is agreeable with plan. Patient has been observed in the ED adequate length of time to insure improvement/stability. patient was discharged home in a stable condition. All the reports of any imaging studies that were ordered by myself were reviewed by myself. Departure 1 Departure Time of Disposition: 20:41 Impression: Primary Impression: URI (upper respiratory infection) Disposition: HOME / SELF CARE / HOMELESS Condition: Stable Additional Instructions: Additional discharge instructions: You MUST follow-up with your primary care/family doctor in 1 to 2 days. If you are unable to see your primary care/family doctor, please return to our emergency room for re-assessment and re-evaluation in 1 to 2 days. Return to the emergency room here in our facility or to the nearest ER [facility] if your symptoms change or worsen. CONSULTATIONS: you MUST Follow-up for consultation as soon as possible with: -pulmonology and cardiology as needed. Please call for appointment. You MUST call the consultants office yourself to make an appointment. You may need to arrange that through your insurance and/or your primary/family doctor. If you are unable to see the client care consultant in 1 to 2 days, you must return to our emergency room (or any other ER of your choice) for re-assessment and re- evaluation. Adequate fluid hydration. Discharged With: Self Critical Care Note Critical Care Time?: No I personally scribed for FADI WONG DO ([email or web address]) on 07/22/24 at 16:15. Kaitlynn ctronically submitted by Eugenio Looney ([email or web address]). I personally scribed for FADI WONG DO ([email or web address]) on 07/22/24 at 16:43. Electronically submitted by Eugenio Looney ([email or web address]). I personally scribed for FADI WONG DO ([email or web address]) on 07/22/24 at 17:44. Electronically submitted by Eugenio Looney ([email or web address]). FADI WONG DO Jul 22, 2024 16:15
--- NOTE | 2024-07-22 16:51 | DVH ---
CHEST RADIOGRAPH Indication: Respiratory symptoms Technique: Single frontal view of the chest was obtained Comparison: XY CHEST PORTABLE on DOS: 01/15/24, CHEST PORTABLE on DOS: 04/09/21 FINDINGS: Lines and Tubes: None Lungs: No focal consolidation. Bilateral lower lung zone linear densities. Pleura: No effusion. No pneumothorax. Cardiomediastinal contours: Unremarkable Bones: No acute osseous abnormality. IMPRESSION: Bilateral lower lung zone linear atelectasis. Otherwise, no evidence for acute cardiopulmonary disea se.
[2024-07-22 16:52] LABS: Basophils # (auto) 0.1 10 ^3/uL (0-0.2); Basophils % (auto) 0.8 % (0.0-2.0); Eosinophils # (auto) 0.3 10 ^3/uL (0-0.8); Eosinophils % (auto) 3.7 % (0.0-7.0); Hematocrit 36.5 % (36.0-46.0); Lymphocytes # (auto) 2.7 10 ^3/uL (0.4-5.4); Mean Corpuscular Hemoglobin 31.8 pg (28.0-32.0); Mean Corpuscular Hgb Conc. 32.8 g/dL (32.0-36.0); Mean Corpuscular Volume 96.9 fL (80.0-100.0); Monocytes # (auto) 0.7 10 ^3/uL (0-1.3); Monocytes % (auto) 8.2 % (0.0-12.0); Neutrophils # (auto) 4.9 10 ^3/uL (1.6-8.6); Neutrophils % (auto) 56.3 % (37.0-80.0); Nucleated Red Blood Cells % 0.1 %; Platelet Count (auto) 217 10^3/uL (140-450); Red Blood Cells 3.77 10^6/uL (4.0-5.20); Red Cell Distribution Width 13.5 % (11.8-14.3); White Blood Cell 8.7 10^3/uL (4.4-10.8)
[2024-07-22 17:10] LABS: Alanine Aminotransferase 11 U/L (7-40); Albumin 4.2 g/dL (3.2-4.8); Alkaline Phosphatase 53 U/L (46-116); Anion Gap 9 (5-15); Aspartate Aminotransferase 11 U/L (13-40); BUN/Creatinine Ratio 13.8 (10.0-20.0); Blood Urea Nitrogen 20 mg/dL (9-23); Calcium 9.6 mg/dL (8.7-10.4); Carbon Dioxide 24 mmol/L (20-31); Chloride 110 mmol/L (98-107); Glucose 103 mg/dL (74-106); Potassium 4.1 mmol/L (3.5-5.1); Sodium 143 mmol/L (136-145)
[2024-07-22 17:11] LABS: Bilirubin, Total 0.2 mg/dL (0.2-1.0); Total Protein 6.5 g/dL (5.7-8.2)
[2024-07-22 20:34] LABS: Rapid Influenza A Negative (Negative); Rapid Influenza B Negative (Negative)
[2024-07-22 20:35] LABS: COVID19 ANTIGEN SOFIA FIA NEGATIVE (NEGATIVE)
[2024-07-22 22:22] VITALS: BP 133/68; PULSE 77; RESP 18; TEMP 98; O2SAT 98
== END 2024-07-22 22:22 | disposition home or self-care (01) ==
LOC: ER 15:49
DX: J06.9 Acute upper respiratory infection, unspecified (principal); I10 Essential (primary) hypertension; E78.5 Hyperlipidemia, unspecified; Z85.9 Personal history of malignant neoplasm, unspecified; Z90.49 Acquired absence of other specified parts of digestive tract; Z87.891 Personal history of nicotine dependence; Z88.8 Allergy status to other drugs, medicaments and biological substances; Z91.041 Radiographic dye allergy status; Z20.822 Contact with and (suspected) exposure to COVID-19
CPT/HCPCS: 36415; 71045; 80053; 84484; 85025; 87426; 87804

== ENCOUNTER → 2024-12-23 | Outpatient (CLI) | payer MEDICARE, OTHER ==
[2024-12-23 12:25] LABS: Basophils # (auto) 0.1 10 ^3/uL (0-0.2); Basophils % (auto) 1.1 % (0.0-2.0); Eosinophils # (auto) 0.3 10 ^3/uL (0-0.8); Eosinophils % (auto) 3.7 % (0.0-7.0); Hematocrit 34.2 % (36.0-46.0); Hemoglobin 11.2 g/dL (12.2-16.2); Lymphocytes # (auto) 2.4 10 ^3/uL (0.4-5.4); Lymphocytes % (auto) 28.8 % (10.0-50.0); Mean Corpuscular Hemoglobin 30.7 pg (28.0-32.0); Mean Corpuscular Hgb Conc. 32.8 g/dL (32.0-36.0); Mean Corpuscular Volume 93.7 fL (80.0-100.0); Monocytes # (auto) 0.5 10 ^3/uL (0-1.3); Monocytes % (auto) 6.5 % (0.0-12.0); Neutrophils # (auto) 4.9 10 ^3/uL (1.6-8.6); Neutrophils % (auto) 59.9 % (37.0-80.0); Nucleated Red Blood Cells % 0.3 %; Platelet Count (auto) 280 10^3/uL (140-450); Red Blood Cells 3.65 10^6/uL (4.0-5.20); Red Cell Distribution Width 14.2 % (11.8-14.3); White Blood Cell 8.2 10^3/uL (4.4-10.8)
[2024-12-23 12:53] LABS: Urine Bacteria FEW /hpf (None Seen); Urine Blood Negative /uL (Negative); Urine Clarity Clear (Clear); Urine Color Yellow (Yellow); Urine Mucus FEW (None Seen); Urine Protein, UAD Negative (Negative); Urine Specific Gravity 1.019 (1.001-1.035); Urine Squamous Epithelial Cell FEW /hpf (<5); Urine Urobilinogen Normal (Negative); Urine WBC 5 /HPF (0-5)
[2024-12-23 13:32] LABS: Albumin 4.3 g/dL (3.2-4.8); Alkaline Phosphatase 75 U/L (46-116); Anion Gap 7 (5-15); BUN/Creatinine Ratio 14.1 (10.0-20.0); Blood Urea Nitrogen 19 mg/dL (9-23); Calcium 9.9 mg/dL (8.7-10.4); Carbon Dioxide 27 mmol/L (20-31); Chloride 107 mmol/L (98-107); Cholesterol 142 mg/dL (< 200); Glucose 98 mg/dL (74-106); HDL Cholesterol 44 mg/dL (40-59); LDL Cholesterol 78 mg/dL (< 100); Sodium 141 mmol/L (136-145); Triglycerides 149 mg/dL (< 150)
[2024-12-23 13:33] LABS: Bilirubin, Total 0.3 mg/dL (0.2-1.0)
[2024-12-23 13:36] LABS: Alanine Aminotransferase < 9 U/L (7-40); Aspartate Aminotransferase 11 U/L (13-40)
[2024-12-23 13:41] LABS: Potassium 5.6 mmol/L (3.5-5.1)
== END | disposition home or self-care (01) ==
LOC: LAB 11:47
PROVIDERS: ATTEND Internal Medicine
DX: I13.0 Hypertensive heart and chronic kidney disease with heart failure and stage 1 through stage 4 chronic kidney disease, or unspecified chronic kidney disease (principal); N18.31 Chronic kidney disease, stage 3a; I50.32 Chronic diastolic (congestive) heart failure; Z79.899 Other long term (current) drug therapy
CPT/HCPCS: 36415; 80053; 80061; 81001; 83036; 84439; 84443; 85025

== ENCOUNTER → 2024-12-26 | Outpatient (CLI) | payer MEDICARE, OTHER ==
[2024-12-26 12:06] LABS: Albumin 4.1 g/dL (3.2-4.8); Alkaline Phosphatase 75 U/L (46-116); Anion Gap 7 (5-15); BUN/Creatinine Ratio 17.3 (10.0-20.0); Blood Urea Nitrogen 22 mg/dL (9-23); Calcium 9.5 mg/dL (8.7-10.4); Carbon Dioxide 30 mmol/L (20-31); Chloride 104 mmol/L (98-107); Glucose 100 mg/dL (74-106); Potassium 4.3 mmol/L (3.5-5.1); Sodium 141 mmol/L (136-145); Total Protein 6.8 g/dL (5.7-8.2)
[2024-12-26 12:07] LABS: Alanine Aminotransferase < 9 U/L (7-40); Aspartate Aminotransferase 10 U/L (13-40); Bilirubin, Total 0.3 mg/dL (0.2-1.0)
== END | disposition home or self-care (01) ==
LOC: LAB 11:21
PROVIDERS: ATTEND Internal Medicine
DX: E78.5 Hyperlipidemia, unspecified (principal)
CPT/HCPCS: 36415; 80053